=== PATIENT | male | born 1960 | race Caucasian/White ===

== ENCOUNTER 2017-03-28 06:38 | Day surgery (SDC) | payer OTHER ==
[2017-03-28] MEDS ORDERED: DEXAMETHASONE SOD PHOSPHATE 4 MG INJ IV ONE (06:39)
[2017-03-28] MEDS ORDERED: IV LACTATED RINGERS SOLUTION 1,000 ML BAG IV ONE (06:39)
[2017-03-28] MEDS ORDERED: ONDANSETRON 4 MG/2 ML VIAL IV ONE (06:39)
[2017-03-28] MEDS ORDERED: CEFAZOLIN 1 G VIAL MC ONE (06:39)
[2017-03-28] MEDS ORDERED: PROPOFOL 200 MG/20 ML BOTTLE IV ONE (06:39)
[2017-03-28] MEDS ORDERED: BUPIVACAINE 0.25% 30 ML VIAL ONE (07:53)
[2017-03-28] MEDS ORDERED: MORPHINE SULFATE PF 10 MG/10 ML AMPUL IV ONE (07:53)
[2017-03-28] MEDS ORDERED: BUPIVACAINE/EPI PF 0.25% 30 ML VIAL ONE (07:53)
[2017-03-28] MEDS ORDERED: SEVOFLURANE 250 ML BOTTLE ONE (09:36)
[2017-03-28] MEDS ORDERED: FENTANYL CITRATE 100 MCG/2 ML AMPUL ONE (10:44)
[2017-03-28] MEDS ORDERED: HYDROCODONE/APAP 5-325MG TABLET ONE (11:35)
== END 2017-03-28 12:30 | disposition home or self-care (01) ==
LOC: DS 06:38
PROVIDERS: ATTEND Orthopaedic Surgery
DX: M23.221 Derangement of posterior horn of medial meniscus due to old tear or injury, right knee (principal); M22.41 Chondromalacia patellae, right knee; M65.861 Other synovitis and tenosynovitis, right lower leg
CPT/HCPCS: A4663; J0690; J1100; J2274; J2405; J3010; J3490; J7120